=== PATIENT | female | born 1960 | race Caucasian/White ===

== ENCOUNTER 2017-01-11 06:09 | Day surgery (SDC) | payer BC ==
--- NOTE | 2017-01-05 09:17 | HP ---
HISTORY AND PHYSICAL: DATE OF ADMISSION: 01/11/17 PATIENT OF: Dr. Jaskaran Johnson (dictated by EDD Aguilar). CHIEF COMPLAINT: Shortness of breath and known history of large diaphragmatic hernia. HISTORY OF PRESENT ILLNESS: Mrs. Peng is a pleasant 56-year-old female who presented to our office back in October of this year after referral from her primary care physician Dr. Estrada who found a large diaphragmatic hernia on a CT scan of her chest. The patient has a longstanding history of COPD for which she has been followed by her primary care physician as well as finger buffs assembler, Dr. Lawler. She has been maintained on Spiriva once daily as well as albuterol as needed for shortness of breath. She noticed increased shortness of breath lately with some vague right upper quadrant abdominal pain on and off especially when she bends and with different position of her trunk. It is noted that the patient had laparoscopic cholecystectomy done already, but she had a workup given her known history of COPD including a CT scan of the chest back in September of this year. 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 The patient was seen by Dr. Johnson on a couple of occasions earlier this year and who discussed with her the need for surgical intervention. It is also to be known that this sort of hernia was very uncommon so Dr. Johnson had offered the patient to seek more experienced surgeon in that field including places with bigger hospital like [facility] or [facility]. The patient on 2 different occasion insisted to have her surgery here because she do not like to travel out of town. She was seen by Dr. Johnson a couple of weeks ago and had all her questions and concerns answered and she will be scheduled to undergo the surgery next week. She is in the office today, denies any changes in her symptoms. She still does get slightly short of breath with exertion, however, she had finger buffs assembler clearance by Dr. Lawler a couple of weeks ago including pulmonary function tests. She notes occasional worsening cough that is none productive and denies any fevers or chills. She presented to the office today to discuss her upcoming surgery and to arrange for her preadmission testing and any other last minute workup that needed for her surgery. PAST MEDICAL HISTORY: As mentioned above, she has a longstanding history of COPD that is maintained on Spiriva and ProAir as needed for shortness of breath. She also has history of GERD and TIA back in 2005. PAST SURGICAL HISTORY: Significant for cholecystectomy and section in the remote past. MEDICATIONS: Her current medications at home include, 1. ProAir HFA inhaler 108 mcg 2 puffs 4 times daily as needed for shortness of breath. 2. Omeprazole 20 mg p.o. daily. 3. Spiriva 18 mcg 1 capsules once daily. 4. Hydroxyzine HCl 25 mg p.r.n. for dizziness. 5. Aspirin 81 mg 2 tablets daily. ALLERGIES: She is allergic to LATEX. FAMILY HISTORY: She denies any family history of colorectal malignancies. SOCIAL HISTORY: The patient continued to smoke half a pack per day. 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 She is . She consumes 4-6 bags per week. REVIEW OF SYSTEMS: See HPI, otherwise negative. She denies any headache, dizziness, weakness, blurred vision or syncope, no chest pain, palpitations. She admits to occasional dyspnea on exertion, but she denies dyspnea at rest, productive cough, fever or chills. No abdominal pain, nausea, vomiting or changes in her bowel habits. No flank pain, dysuria, hematuria or urinary frequency. PHYSICAL EXAMINATION GENERAL: She is a pleasant middle-aged female in no acute distress or discomfort at the time of her admission. VITAL SIGNS: Her vitals in the office today revealed a blood pressure of 138/86 , pulse of 60, respirations of 16, temperature of 97.7. She weighs 151 pounds on 5 feet 7 inch frame given her 23.6 BMI. HEENT: Sclerae anicteric. PERRLA. EOMs intact. Oropharynx is pink and moist with no exudates. NECK: Supple. Trachea midline. No cervical adenopathy, thyromegaly or JVD. LUNGS: Mild wheezing noted at the bases bilaterally, but no rales or rhonchi noted. There is in general decreased breath sounds throughout. No chest retractions or labored expiratory force noted. HEART: Regular rate and rhythm. Normal S1 and S2 without rubs, murmurs or gallops. BREASTS: Deferred at this time. BACK: Normal curvature. No CVA tenderness. ABDOMEN: Soft, nontender, nondistended. No hernias, masses or hepatosplenomegaly. NEUROLOGIC: Grossly intact. EXTREMITIES: Without cyanosis, clubbing or edema. RECTAL: Deferred at this time. ASSESSMENT: A 56-year-old female with large right-sided diaphragmatic hernia that was found on a CT scan, scheduled for laparoscopic repair of her diaphragmatic hernia. PLAN: The patient is already scheduled for laparoscopic repair of her diaphragmatic hernia. The rationale indications, risks and benefits of her surgery were discussed with her today. Risks include but not limited to infection, bleeding or injury to adjacent structures. Given the size of her deficit, we would likely use some sort of a patch or a mesh to close that deficit. She understands the magnitude of the surgery and the need for possible hospitalization as well as potential complications related to anesthesia given her known history of COPD. She fully understands and still wishes to proceed. We will obtain a chest x-ray and an EKG given her recent changes in her status including more intermittent cough. We also obtained her finger buffs assembler clearance and a copy of her pulmonology function tests to be included in her chart. I also discussed with her, we are holding her aspirin 7 days preoperatively and we will likely consider DVT, PE prophylaxis postoperatively during her hospitalization. EDD AGUILAR CC: Dr. Lawler; Dr. Estrada* [id number]/[facility] #: [id number] [facility]
[~2017-01-11 06:09] MED LIST: Buffered Lidocaine 1% SYRIN* 3 ML/SYR SYRINGE INTRADERM ONE
[2017-01-11] MEDS ORDERED: ceFAZolin 2 GM PREMIX(*) 2 GM/50 ML BAG IVPB ONE (06:11)
[2017-01-11] MEDS ORDERED: Bupivacaine 0.25% EPI 200,000* 30 ML SDV ONE (07:16)
[2017-01-11] MEDS ORDERED: fentaNYL* 50 MCG/ML 2 ML VIAL (100 MCG VIAL) ONE ×5 (07:25→13:17)
[2017-01-11] MEDS ORDERED: Midazolam* 1 MG/ML 2 ML VIAL (2 MG) ONE ×2 (07:25→08:17)
[2017-01-11] MEDS ORDERED: Levalbuterol 1.25MG/0.5ML NEB ONE (07:56)
[2017-01-11] MEDS ORDERED: Cisatracurium* 2 MG/ML MDV 5 ML ONE (08:14)
[2017-01-11] MEDS ORDERED: Hetastarch in NS* 500 ML IV ONE (08:36)
[2017-01-11] MEDS ORDERED: Ondansetron INJ* 2 MG/ML VIAL ONE (09:01)
[2017-01-11] MEDS ORDERED: Famotidine IV* 10 MG/ML 2 ML (20 mg) ONE (09:01)
[2017-01-11] MEDS ORDERED: Propofol* 10 MG/ML 20 ML BTL IV PUSH ONE (09:01)
[2017-01-11] MEDS ORDERED: Dexamethasone IV* 4 MG/ML 1 ML (4 MG) ONE (09:01)
[2017-01-11] MEDS ORDERED: Lidocaine 2% PF * 5 ML VIAL ONE (09:01)
[2017-01-11] MEDS ORDERED: Ondansetron INJ* 2 MG/ML VIAL IV PRN (09:28)
[2017-01-11] MEDS ORDERED: Levalbuterol 1.25MG/0.5ML NEB INH PRN (09:28)
[2017-01-11] MEDS ORDERED: DiMENhydriNATE IV* 50 MG/ML VIAL IV PUSH PRN (09:28)
[2017-01-11] MEDS ORDERED: Scopolamine 1.5 mg* PATCH TRANSDERM PRN (09:28)
[2017-01-11] MEDS ORDERED: Acetaminophen TAB* 325 MG PO PRN (09:28)
[2017-01-11] MEDS ORDERED: PROCHLORPERAZINE INJ 5 MG/ML 2 ML VIAL IV PRN (09:28)
[2017-01-11] MEDS ORDERED: Ketorolac INJ* 30 MG/ML 1 ML VIAL ONE (10:03)
[2017-01-11] MEDS ORDERED: HYDROmorphone* 1 MG/ML 1 ML SYR ONE (10:31)
[2017-01-11] MEDS: HYDROmorphone* 1 MG/ML 1 ML SYR IV PRN ×5 (10:33→12:12)
[2017-01-11] MEDS: fentaNYL* 50 MCG/ML 2 ML VIAL (100 MCG VIAL) IV PRN ×5 (10:34→13:17)
--- NOTE | 2017-01-11 11:11 | RAD ---
Indication: Postop RIGHT side diaphragmatic hernia repair. Comparison: January 09, 2017 Technique: Upright AP 1042 hours Report: The RIGHT-sided diaphragmatic hernia is no longer visualized. Surgical clips reflecting hernia repair noted both RIGHT and LEFT of midline. There is mild subsegmental atelectasis at the RIGHT lung base. Small RIGHT pleural effusion not excluded. Negative for pneumothorax. The heart, pulmonary vasculature, and mediastinal contours are unremarkable. IMPRESSION: Mild RIGHT basilar atelectasis and potential small RIGHT pleural effusion. Negative for pneumothorax.
[2017-01-11 13:14] VITALS: BP 151/83
[2017-01-11] MEDS ORDERED: oxyCODONE/Acetamin 5/325 MG* TAB ONE (13:35)
[2017-01-11] MEDS ORDERED: oxyCODONE/Acetamin 5/325 MG* TAB PO PRN (13:37)
--- NOTE | 2017-01-11 23:30 | OP ---
DATE OF OPERATION: 01/11/17 - [facility] DATE OF : 56 SURGEON: Jaskaran Johnson MD COURT MAGISTRATE: Shamar Juan MD ANESTHESIOLOGIST: Dr. Gibson. ANESTHESIA: General anesthetic. 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 OPERATIVE PROCEDURE: Laparoscopic repair of Morgagni hernia with mesh. DESCRIPTION OF PROCEDURE: The patient was supine on the operative table. After adequate general anesthetic, compression stockings, Sachin Hugger warmer, and intravenous antibiotics, she was appropriately secured and strapped to the table. Foot board was in place as well. The abdomen and lower chest were prepped with antiseptic and draped in a sterile fashion. Local infiltrative anesthesia was administered. A small umbilical incision was created. A blunt port cannula was placed. Insufflation was carried out with carbon dioxide. Additional cannulae 5- mm, right upper quadrant, left upper quadrant and left anterior axillary line were placed through a small stab wound under direct vision. The hernia defect was a roughly 3 x 5 cm in size with omentum and loops of bowel up in there. This was easily reduced with the patient in reverse Trendelenburg. The sac was easily dissected free and sent for pathologic specimen. The preperitoneal fat around the edge of the defect was also dissected free to allow good adherence of the mesh. A 14 x 18 cm coated mesh was put into place over the defect. It was sutured along the inferior edge of the defect and then laid up into place to allow good positioning and then spiral tacker was used to tack inferiorly on the right and then laterally on the right and then all across the superior edge. Care was taken not to place any tacks in the region of the pericardium. The patch was in excellent position and as pneumoperitoneum was allowed to escape, the liver covered over the patch nicely. Hemostasis was good. The cannulae were removed. Pneumoperitoneum was allowed to escape. Umbilical fascia was closed with 0 Polysorb, skin with 5-0 Polysorb followed by Steri-Strips. She tolerated the procedure well, was brought to Recovery in good condition. No complications. No drains. Pathological specimen is hernia sac. Sponge and instrument counts were correct. Estimated blood lossless than 50 mL. CC: Jaskaran Johnson MD; Dr. Estarda * [id number]/[facility] #: [id number] AIRAM
[2017-01-14] MEDS ORDERED: Scopolomine PATCH Remove* 1 NOTE MISC PATCH OFF ONE (09:30)
== END 2017-01-11 13:45 | disposition home or self-care (01) ==
LOC: OR 06:09
PROVIDERS: ATTEND Surgery
DX: K44.9 Diaphragmatic hernia without obstruction or gangrene (principal); F17.210 Nicotine dependence, cigarettes, uncomplicated; J44.9 Chronic obstructive pulmonary disease, unspecified
CPT/HCPCS: 36415; 71010; 86803; 88302; A9270-GY; C1781; J0690; J1100; J1170; J1885; J2250; J2405; J2704; J3010

== ENCOUNTER 2017-01-21 12:17 | Emergency (ER) | payer BC ==
[2017-01-21 14:08] VITALS: BP 134/83
--- NOTE | 2017-01-21 14:18 | UC ---
Skin Complaint HPI - HPI Summary HPI Summary: pt reports that she woke yesterday morning with swollen lips, hive on face, and uppper chest. Pt thinks she was bitten by an insect but unsure what it was. Pt also reports that she had place d concentrated scented satchels on the couch that she has been sleeping on the last two nights. Pt has been taking OTC oral benadryl with improvement but not resolution - History of Current Complaint Chief Complaint: UCRash Time Seen by Provider: 01/21/17 14:13 Stated Complaint: HIVES,SWOLLEN FACE 1 DAY Hx Obtained From: Patient Hx Last Menstrual Period: 5 yrs ?: No Onset/Duration: Sudden Onset, Lasting Hours Skin Exposure Onset/Duration: Days Ago Timing: Constant Onset Severity: Mild Current Severity: Mild Location: Face, Other - upper chest and left shoulder Character: Pruritus, Hives, Redness Aggravating: Touch Alleviating: Antihistamines Associated Signs & Symptoms: Positive: Negative Related History: Possible Reaction to: Insect, Possible Reaction to: Environmental Exposure - Allergy/Home Medications Allergies/Adverse Reactions: Allergies Allergy/AdvReac Type Severity Reaction Status Date / Time Latex Allergy HIVES, Verified 01/21/17 14:00 ITCHING Home Medications: Home Medications diPHENhydraMINE PO* [Benadryl PO 25 MG TAB*] 25 mg PO TID 01/21/17 [History Confirmed 01/21/17] Review of Systems Constitutional: Negative Skin: Rash Eyes: Negative ENT: Negative Respiratory: Negative Cardiovascular: Negative Gastrointestinal: Negative Genitourinary: Negative Motor: Negative Neurovascular: Negative Musculoskeletal: Negative Neurological: Negative Psychological: Negative All Other Systems Reviewed And Are Negative: Yes PMH/Surg Hx/FS Hx/Imm Hx Previously Healthy: Yes Cardiovascular History Of: Denies: Hypertension Respiratory History Of: Reports: COPD, Bronchitis - IN THE PAST GI/ History Of: Denies: Ulcer - Surgical History Surgical History: Yes Surgery Procedure, Year, and Place: 01/14/2013, RIGHT HAND, [facility]. C SECTION, 1980 , 1983, [facility]. GALLBLADDER, [facility]. TUBAL LIGATION, [facility]. D &C, 2003, [place]. 2010, BILATERAL DUPUYTREN'S - [facility]. LEFT INDEX FINGER FX - [facility], hernia surgery 12/2016 - Family History Known Family History: Positive: Cardiac Disease - Social History Lives: With Family Alcohol Use: Daily Alcohol Amount: 6-8 BEERS PER DAY Substance Use Type: None Smoking Status (MU): Heavy Every Day Tobacco Smoker Type: Cigarettes Amount Used/How Often: 2 PPD Length of Time of Smoking/Using Tobacco: 47 yrs Have You Smoked in the Last Year: Yes Physical Exam Triage Information Reviewed: Yes Appearance: Well-Appearing Vital Signs: Initial Vital Signs Temp 99.5 F 01/21/17 14:01 Pulse 88 01/21/17 14:01 Resp 16 01/21/17 14:01 BP 134/83 01/21/17 14:01 Pulse Ox 98 01/21/17 14:01 Eye Exam: Normal ENT Exam: Normal Neck exam: Normal Respiratory Exam: Normal Cardiovascular Exam: Normal Musculoskeletal Exam: Normal Neurological Exam: Normal Psychological Exam: Normal Skin Exam: Other - confluant hives on left upper chest and shoulder Course/Dx - Differential Diagnoses - Skin Complaint Differential Diagnoses: Contact Dermatitis, Urticaria - Diagnoses Provider Diagnoses: uritcaria. contact dermatitis Discharge - Discharge Plan Condition: Stable Disposition: HOME Prescriptions: Loratadine [Claritin 10 MG CAP] 10 mg PO DAILY #7 cap predniSONE TAB* [Deltasone TAB*] 20 mg PO DAILY #3 tab Patient Education Materials: Contact Dermatitis (ED) Referrals: Emil Estrada MD [Primary Care Provider] - If Needed (Please follow up with your PCP or return to clinic as needed. )
== END 2017-01-21 14:25 | disposition home or self-care (01) ==
LOC: UCCORT 12:17
DX: L50.9 Urticaria, unspecified (principal); L25.9 Unspecified contact dermatitis, unspecified cause; Z91.040 Latex allergy status; F17.210 Nicotine dependence, cigarettes, uncomplicated
CPT/HCPCS: 99212; G0463

== ENCOUNTER 2017-04-02 11:33 | Emergency (ER) | payer BC ==
[2017-04-02 12:07] VITALS: BP 151/83
--- NOTE | 2017-04-02 12:19 | UC ---
Complaint Female HPI - HPI Summary HPI Summary: patient has had 2 days of urinary frequency, abdomen fullness and burning with urination - History Of Current Complaint Chief Complaint: UCGU Stated Complaint: URINARY Time Seen by Provider: 04/02/17 12:02 Hx Obtained From: Patient Hx Last Menstrual Period: 5 yrs ?: No Onset/Duration: Sudden Onset, Lasting Days Timing: Intermittent Severity Initially: Mild Severity Currently: Moderate Character: Burning, Cramping Aggravating Factor(s): Urination Alleviating Factor(s): Position Associated Signs And Symptoms: Positive: Back Pain - low back - Risk Factors Ectopic Risk Factor: Negative Ovarian Torsion Risk Factor: Negative - Allergies/Home Medications Allergies/Adverse Reactions: Allergies Allergy/AdvReac Type Severity Reaction Status Date / Time Latex Allergy HIVES, Verified 04/02/17 12:00 ITCHING Home Medications: Home Medications Nebivolol TAB (NF) [Bystolic TAB (NF)] 5 mg PO DAILY 04/02/17 [History Confirmed 04/02/17] PMH/Surg Hx/FS Hx/Imm Hx Previously Healthy: Yes Cardiovascular History: Hypertension - Surgical History Surgical History: Yes Surgery Procedure, Year, and Place: 01/14/2013, RIGHT HAND, [facility] [place]. C SECTION, 1980 , 1983, [facility]. GALLBLADDER, [facility]. TUBAL LIGATION, [facility]. D &C, 2003, [place]. Hernia, 01/11/17, [facility] [place]. 2010, BILATERAL DUPUYTREN'S - [facility] [place] LEFT INDEX FINGER FX - [facility] [place], hernia surgery 12/2016 - Family History Known Family History: Positive: Cardiac Disease - Social History Alcohol Use: Daily Alcohol Amount: 6-8 BEERS PER DAY Substance Use Type: None Smoking Status (MU): Heavy Every Day Tobacco Smoker Type: Cigarettes Amount Used/How Often: 2 PPD Length of Time of Smoking/Using Tobacco: 47 yrs Have You Smoked in the Last Year: Yes Review of Systems Constitutional: Negative Skin: Negative Eyes: Negative ENT: Negative Respiratory: Negative Cardiovascular: Negative Gastrointestinal: Abdominal Pain Genitourinary: Dysuria, Frequency, Urgency Motor: Negative Neurovascular: Negative Musculoskeletal: Negative Neurological: Negative Psychological: Negative All Other Systems Reviewed And Are Negative: Yes Physical Exam Triage Information Reviewed: Yes Appearance: Well-Appearing, Well-Nourished, Pain Distress Vital Signs: Initial Vital Signs Temp 98.3 F 04/02/17 12:01 Pulse 68 04/02/17 12:01 Resp 16 04/02/17 12:01 BP 151/83 04/02/17 12:01 Pulse Ox 100 04/02/17 12:01 Vital Signs Reviewed: Yes Eye Exam: Normal ENT Exam: Normal Dental Exam: Normal Neck exam: Normal Respiratory Exam: Normal Cardiovascular Exam: Normal Abdomen Description: Positive: Nontender, No Organomegaly, Soft, CVA Tenderness (R) - neg, CVA Tenderness (L) - neg Bowel Sounds: Positive: Present Musculoskeletal Exam: Normal Neurological Exam: Normal Psychological Exam: Normal Skin Exam: Normal Complaint Female Dx - Course Course Of Treatment: hx obtained, exam performed ,meds reviewed, UA pos, reviewed BP with patient and she was recently placed on bystolic for HTN - Differential Dx/Diagnosis Differential Diagnosis/HQI/PQRI: Sexually Transmitted Disease, Ureteral Stone, Urinary Tract Infection Provider Diagnoses: Hypertension. UTI Discharge - Discharge Plan Condition: Stable Disposition: HOME Prescriptions: Cephalexin CAP* [Keflex CAP*] 500 mg PO BID #14 cap Patient Education Materials: Urinary Tract Infection in Women (ED) Additional Instructions: 1. take the medication as prescribed. 2. Increase your fluid intake 3. ibuprofen or tylneol for pain
[2017-04-02] MEDS ORDERED: Phenazopyridine TAB* 100 MG PO ONE (12:27)
== END 2017-04-02 12:40 | disposition home or self-care (01) ==
LOC: UCCORT 11:33
DX: I10 Essential (primary) hypertension (principal); N39.0 Urinary tract infection, site not specified; Z72.0 Tobacco use
CPT/HCPCS: 81003; 99212; A9270-GY; G0463

== ENCOUNTER 2018-03-30 12:45 | Emergency (ER) | payer BC ==
--- OUTSIDE RECORDS SUMMARY | 2018-03-30 12:50 | XMS REPORT | Continuity of Care Document ---
:1960 Author Organization [facility] Care Team Providers Name Role Phone ARACELI HAMM Admitting Physician ext. ARACELI LANE Attending Physician ext. ROSY SHUKLA Primary Care Physician Allergies and Intolerances No Known Allergies Medications No Known Medications Problems No Data in the system Procedures No data in the system Results Blood Bank Results Order: pRBC Unit of Packed Red Blood Cells Specimen Source: Body Site: LOINC Code Test Result Date Cross Match Result Compatible 03/18/2018 16:56 Volume 250 03/18/2018 16:56 Unit Blood Type O Pos 03/18/2018 16:56 Unit Number [id number] 03/18/2018 16:56 Status Information Transfused 03/18/2018 16:56 P Red Blood Cells 03/18/2018 16:56 Issue Date/Time [id number] 03/18/2018 16:56 Order: pRBC Unit of Packed Red Blood Cells Specimen Source: Body Site: LOINC Code Test Result Date Cross Match Result Compatible 03/18/2018 16:56 Volume 250 03/18/2018 16:56 Unit Blood Type O Pos 03/18/2018 16:56 Unit Number [id number] 03/18/2018 16:56 Status Information Transfused 03/18/2018 16:56 P Red Blood Cells 03/18/2018 16:56 Issue Date/Time [id number] 03/18/2018 16:56 Social History Code Code System Social History Description Dates Observed Observation 729642564 SNOMED CT Current Smoking Current every day Status smoker UNK AdministrativeGender Sex Assigned At Unknown Vital Signs Code Code System Vitals Value Date 8310-5 LOINC Body Temperature 96.9 [degF] 03/19/2018 8865-8 LOINC Pulse Rate 68 {beats}/min 03/19/2018 9279-1 LOINC Respiratory Rate 18 /min 03/19/2018 81902-2 LOINC O2% BldC Oximetry 96 % 03/19/2018 8480-6 LOINC BP Systolic 144 mm[Hg] 03/19/2018 8462-4 LOINC BP Diastolic 91 mm[Hg] 03/19/2018 8302-2 LOINC Height 66 [in_i] 03/19/2018 83375-2 LOINC Weight 66.36 kg 03/19/2018 3140-1 LOINC Body surface area Derived from formula 1.75 m2 03/19/2018 30826-3 LOINC BMI (Body Mass Index) 23.7 kg/m2 03/19/2018 Goals Section No data in the system Health Concerns No data in the systemEncounter Diagnosis Date Code Code System Diagnosis Status D64.9 ICD10 ANEMIA UNSPECIFIED Active Advance Directives *RHIO - CONSENT IS YES Directive Type Effective Date Wireless Network Engineer Notes Supporting Document Name Address Phone No Directive Type 03/19/2018 9:48:56 Not Specified Not Specified Not Specified None No specified AM Family History No data in the system Functional Status Code Functional Condition Code System Date Status Independent SNOMED CT 03/19/[address] feed SNOMED CT 03/19/2018 Active 253865298 Able to wash self SNOMED CT 03/19/2018 Active Immunizations No data in the system Medical Equipment No data in the system Mental Status No data in the system Assessment and Plan Assessments No data in the systemPlan Of Treatment No data in the systemPending Tests No data in the system Hospital Discharge Instructions No data in the system Reason for Visit Reason for Visit 2 units
--- OUTSIDE RECORDS SUMMARY | 2018-03-30 12:50 | XMS REPORT | Continuity of Care Document ---
:1960 Author Organization [facility] Care Team Providers Name Role Phone ARACELI HAMM Admitting Physician ext. ARACELI LANE Attending Physician ext. VIK Allergies and Intolerances No Known Allergies Medications No Known Medications Problems No Data in the system Procedures No data in the system Results Blood Bank Results Order: TYPE AND SCREEN Specimen Source: Body Site: INC Code Test Result Date 92030 ABO/Rh Typing O Rh Positive 03/18/2018 14:41 Specimen Expiration Date 03/18/2018 14:41 63682 Antibody Screen Negative 03/18/2018 14:41 Specimen Expiration Date 03/18/2018 14:41 Social History Code Code System Social History Description Dates Observed Observation 594316976 SNOMED CT Current Smoking Unknown if ever Status smoked UNK AdministrativeGender Sex Assigned At Unknown Vital Signs No data in the system Goals Section No data in the system Health Concerns No data in the systemEncounter Diagnosis Date Code Code System Diagnosis Status 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 Advance Directives *RHIO - CONSENT IS YES Directive Type Effective Date Quality Assurance Associate Notes Supporting Document Name Address Phone No Directive Type 03/19/2018 9:48:56 Not Specified Not Specified Not Specified None No specified AM Family History No data in the system Functional Status No data in the system Immunizations No data in the system Medical Equipment No data in the system Mental Status No data in the system Assessment and Plan Assessments No data in the systemPlan Of Treatment No data in the systemPending Tests No data in the system Hospital Discharge Instructions No data in the system Reason for Visit No data in the system
[2018-03-30 13:06] VITALS: BP 120/82
--- NOTE | 2018-03-30 13:26 | UC ---
Ear Complaint HPI - HPI Summary HPI Summary: patient is on chemo for breast cancer. has had postnasal drip and ear fullness for the past few days. swollen lymph node at the angle of the left mandible, denies fever - History of Current Complaint Chief Complaint: UCGeneralIllness Stated Complaint: FACIAL SWELLING Time Seen by Provider: 03/30/18 12:52 Hx Obtained From: Patient Hx Last Menstrual Period: 5 yrs ?: No Onset/Duration: Sudden Onset, Lasting Days Severity Initially: Moderate Severity Currently: Moderate Pain Intensity: 4 Associated Signs/Symptoms: Positive: Swelling @ - left mandible, URI Symptoms - Allergies/Home Medications Allergies/Adverse Reactions: Allergies Allergy/AdvReac Type Severity Reaction Status Date / Time Adhesive Tape Allergy Hives Verified 03/30/18 12:59 [Tegaderm Dressing] latex Allergy Hives Verified 03/30/18 12:59 Home Medications: Home Medications CARBOplatin [Carboplatin] 10 mg INFUSION MONTHLY 03/30/18 [History Confirmed ] DOCEtaxel* [taxOTERE*] 20 mg INFUSION MONTHLY 03/30/18 [History Confirmed ] Trastuzumab* [Herceptin*] 440 mg INFUSION WEEKLY 03/30/18 [History Confirmed ] Valsartan TAB* [Diovan TAB*] 160 mg PO DAILY 03/30/18 [History Confirmed ] PMH/Surg Hx/FS Hx/Imm Hx Previously Healthy: Yes - Surgical History Surgical History: Yes Surgery Procedure, Year, and Place: 01/14/[place] [facility] [place] , 1983, [facility]. GALLBLADDER, [facility]. TUBAL LIGATION, [facility]. D &C, 2003, [place]. Hernia, 01/11/17, [facility] [place], BILATERAL DUPUYTREN'S - [facility] [place] LEFT INDEX FINGER FX - [facility] [place], her[place] surgery 12/2016. LUMPECTOMY AND AXILLARY NODE DISSECTION RIGHT BREAST. POWERPORT - Family History Known Family History: Positive: Cardiac Disease - Social History Alcohol Use: Daily Alcohol Amount: 6-8 BEERS PER DAY Substance Use Type: None Smoking Status (MU): Heavy Every Day Tobacco Smoker Type: Cigarettes Amount Used/How Often: 1 1/2 Length of Time of Smoking/Using Tobacco: 47 yrs Have You Smoked in the Last Year: Yes Review of Systems Constitutional: Negative Skin: Negative Eyes: Negative ENT: Sore Throat, Ear Ache, Nasal Discharge Cardiovascular: Negative Gastrointestinal: Negative Genitourinary: Negative Motor: Negative Neurovascular: Negative Musculoskeletal: Negative Neurological: Negative Psychological: Negative Is Patient Immunocompromised?: No All Other Systems Reviewed And Are Negative: Yes Physical Exam Triage Information Reviewed: Yes Appearance: Ill-Appearing, Pain Distress, Thin Vital Signs: Initial Vital Signs Temp 97.7 F 03/30/18 12:52 Pulse 101 03/30/18 12:52 Resp 19 03/30/18 12:52 BP 120/82 03/30/18 12:52 Pulse Ox 100 03/30/18 12:52 Vital Signs Reviewed: Yes Eye Exam: Normal ENT: Positive: Pharyngeal erythema - with PND, Nasal congestion, Other - bilateral cerumen impaction Dental Exam: Normal Neck exam: Normal Neck: Positive: Supple, Nontender, Enlarged Nodes @ - left submandibular Respiratory Exam: Normal Respiratory: Positive: Chest non-tender, Lungs clear, Normal breath sounds Cardiovascular Exam: Normal Cardiovascular: Positive: No Murmur, Pulses Normal, Tachycardia - patient had cigarrette before arrival Abdominal Exam: Normal Bowel Sounds: Positive: Present Musculoskeletal Exam: Normal Neurological Exam: Normal Psychological Exam: Normal Skin Exam: Normal Ear Complaint Course/Dx - Course Course Of Treatment: hx obtained, exam performed ,meds reviewed, ear flush performed, started on azithromycin and educated on symtpoms relief, recommend follow up with her oncologist this week. - Differential Dx/Diagnosis Differential Diagnosis/HQI/PQRI: Cerumen Impaction, Pharyngitis, URI Provider Diagnoses: URI. Post nasal drip. lymphadenopathy. breast cancer Discharge - Sign-Out/Discharge Documenting (check all that apply): Patient Departure - Discharge Plan Condition: Stable Disposition: HOME Prescriptions: Azithromyxin KEELEY (NF) [Z-Keeley (Zithromax) 250 mg tabs #6] 2 tab PO .TODAY, THEN 1 DAILY #6 tab Patient Education Materials: Upper Respiratory Infection (ED) Referrals: Emil Estrada MD [Primary Care Provider] - Additional Instructions: 1. take the medication as prescribed. 2. Warm compresses to the sinuses and swollen lymph node 3. Follow up with your oncologist this week if symptoms are not improving - Billing Disposition and Condition Condition: STABLE Disposition: Home
== END 2018-03-30 14:00 | disposition home or self-care (01) ==
LOC: UCCORT 12:45
DX: J06.9 Acute upper respiratory infection, unspecified (principal); R09.82 Postnasal drip; R59.1 Generalized enlarged lymph nodes; C50.919 Malignant neoplasm of unspecified site of unspecified female breast; Z91.048 Other nonmedicinal substance allergy status; Z91.040 Latex allergy status; F17.210 Nicotine dependence, cigarettes, uncomplicated
CPT/HCPCS: 99212; G0463

== ENCOUNTER 2019-11-24 14:39 | Emergency (ER) | payer BC ==
[2019-11-24 15:07] VITALS: BP 147/86
--- NOTE | 2019-11-24 15:23 | UC ---
Complaint Female HPI - HPI Summary HPI Summary: Pt presents with c/o sudden onset of urinary urgency, frequency, dysuria X 1 week. - History Of Current Complaint Chief Complaint: UCGU Stated Complaint: URINARY COMPLAINT Hx Obtained From: Patient Hx Last Menstrual Period: 5 yrs ?: No Onset/Duration: Sudden Onset, Lasting Days, Still Present Timing: Intermittent Severity Initially: Mild Severity Currently: Mild Pain Intensity: 3 Character: Sharp, Burning Aggravating Factor(s): Urination Associated Signs And Symptoms: Positive: Negative - Risk Factors Ectopic Risk Factor: Negative Ovarian Torsion Risk Factor: Negative - Allergies/Home Medications Allergies/Adverse Reactions: Allergies Allergy/AdvReac Type Severity Reaction Status Date / Time Adhesive Tape Allergy Hives Verified 11/24/19 14:57 [Tegaderm Dressing] latex Allergy Hives Verified 11/24/19 14:57 Home Medications: Home Medications Aspirin [Aspir 81] 2 tab PO QAM 01/07/13 [History Confirmed 11/24/19] Omeprazole [Prilosec CAP 10 MG] 20 mg PO QAM 01/07/13 [History Confirmed ] Albuterol inh POWDER (NF) [Proair Respiclick] 2 puff INH Q4H PRN 05/26/16 [ History Confirmed 11/24/19] Spiriva Inhaler DEVICE* 2 puff INH BEDTIME 01/04/17 [History Confirmed 11/24/19] Valsartan TAB* [Diovan TAB*] 160 mg PO DAILY 03/30/18 [History Confirmed ] Cephalexin CAP* [Keflex 500 CAP*] 500 mg PO Q8H #21 cap 11/24/19 [Rx] Letrozole (NF) [Femara (NF)] 2.5 mg PO DAILY 11/24/19 [History Confirmed ] Phenazopyridine TAB* [Pyridium 100 mg TAB*] 100 mg PO Q8H #6 tab 11/24/19 [Rx] PMH/Surg Hx/FS Hx/Imm Hx Previously Healthy: Yes - Surgical History Surgical History: Yes Surgery Procedure, Year, and Place: 01/14/2013, [place], [facility] [place], [place] , 1983, [facility]. GALLBLADDER, [facility]. TUBAL LIGATION, [facility]. D &C, 2003, [place]. Hernia, 01/11/17, [facility]. 2011, BILATERAL DUPUYTREN'S - [facility]. LEFT INDEX FINGER FX - [facility] [place], [place] 12/2016. LUMPECTOMY AND AXILLARY NODE DISSECTION RIGHT BREAST. POWERPORT - Family History Known Family History: Positive: Cardiac Disease - Social History Occupation: Employed Full-time Lives: With Family Alcohol Use: Daily Alcohol Amount: 6-8 BEERS PER DAY Substance Use Type: None Smoking Status (MU): Heavy Every Day Tobacco Smoker Type: Cigarettes Amount Used/How Often: 1 1/2 Length of Time of Smoking/Using Tobacco: 47 yrs Have You Smoked in the Last Year: Yes - Immunization History Vaccination Up to Date: No Review of Systems All Other Systems Reviewed And Are Negative: Yes Constitutional: Positive: Negative Skin: Positive: Negative Eyes: Positive: Negative ENT: Positive: Negative Respiratory: Positive: Negative Cardiovascular: Positive: Negative Gastrointestinal: Positive: Negative Genitourinary: Positive: Dysuria, Frequency, Urgency Motor: Positive: Negative Neurovascular: Positive: Negative Musculoskeletal: Positive: Negative Neurological/Mental Status: Positive: Negative Psychological: Positive: Negative Is Patient Immunocompromised?: No Physical Exam Triage Information Reviewed: Yes Appearance: Well-Appearing Vital Signs: Initial Vital Signs Temp 98.2 F 11/24/19 15:01 Pulse 106 11/24/19 15:01 Resp 15 11/24/19 15:01 BP 147/86 11/24/19 15:01 Pulse Ox 97 11/24/19 15:01 Vital Signs Reviewed: Yes Eye Exam: Normal ENT Exam: Normal Dental Exam: Normal Neck exam: Normal Respiratory Exam: Normal Cardiovascular Exam: Normal Abdominal Exam: Normal Musculoskeletal Exam: Normal Neurological Exam: Normal Psychological Exam: Normal Skin Exam: Normal Complaint Female Dx - Differential Dx/Diagnosis Differential Diagnosis/HQI/PQRI: Urinary Tract Infection Provider Diagnosis: UTI (urinary tract infection) Discharge ED - Sign-Out/Discharge Documenting (check all that apply): Patient Departure All imaging exams completed and their final reports reviewed: No Studies - Discharge Plan Condition: Stable Disposition: HOME Prescriptions: Cephalexin CAP* [Keflex 500 CAP*] 500 mg PO Q8H #21 cap Phenazopyridine TAB* [Pyridium 100 mg TAB*] 100 mg PO Q8H #6 tab Patient Education Materials: Urinary Tract Infection in Women (ED) Referrals: Emil Estrada MD [Primary Care Provider] - If Needed - Billing Disposition and Condition Condition: STABLE Disposition: Home
== END 2019-11-24 15:32 | disposition home or self-care (01) ==
LOC: UCCORT 14:39
DX: N39.0 Urinary tract infection, site not specified (principal); Z91.09 Other allergy status, other than to drugs and biological substances; Z91.040 Latex allergy status; Z79.82 Long term (current) use of aspirin; F17.210 Nicotine dependence, cigarettes, uncomplicated
CPT/HCPCS: 81003; 87077; 87086; 87186; 99212; G0463